=== PATIENT | male | born 1955 | race Caucasian/White ===

== ENCOUNTER 2020-09-18 16:20 | Emergency (ER) | payer OTHER ==
[~2020-09-18] VITALS: Ht 167.6 cm; Wt 74.8 kg
[~2020-09-18 16:20] MED LIST: ASPI325EC PO; ASPI81CH PO; CHANTIX1 EACH PO; CILO100; CLOP75 PO; FLUT1DIS5 INH; Flonase 0.05% N16 GM; IBUP800; OXYC5; PROAIR DIGIHAL90 MCG INH; PSEU120ER PO; SPIRIVA RESPIMAT4 GM INH; Zithromax250 MG PO
[2020-09-18 17:12] LABS: BASOPHILS ABSOLUTE AUTO 0.06 K/mm3 (0.00-0.23); BASOPHILS PERCENT AUTO 1 % (0-2); EOSINOPHILS PERCENT AUTO 3 % (0-6); Hematocrit 52.7 % (37.0-53.0); IMMATURE GRAN ABSOLUTE AUTO 0.02 K/mm3 (0.00-0.10); IMMATURE GRAN PERCENT AUTO 0 % (0-1); LYMPHOCYTES ABSOLUTE AUTO 2.67 K/mm3 (0.84-5.20); LYMPHOCYTES PERCENT AUTO 40 % (21-46); MONOCYTES ABSOLUTE AUTO 0.45 K/mm3 (0.16-1.47); MONOCYTES PERCENT AUTO 7 % (4-13); Mean Corpuscular HGB 30.3 pg (26.0-34.0); Mean Corpuscular HGB Conc 34.2 g/dL (31.5-36.5); Mean Corpuscular Volume 89 fL (80-100); Mean Platelet Volume 9.2 fL (9.1-12.4); NEUTROPHILS ABSOLUTE AUTO 3.36 K/mm3 (1.96-9.15); NEUTROPHILS PERCENT AUTO 50 % (41-73); Platelet Count 159 K/mm3 (150-400); RDW Coefficient Variation 12.6 % (11.7-14.2); Red Blood Cell Count 5.95 M/mm3 (4.30-5.90); White Blood Cell Count 6.76 K/mm3 (4.00-11.30)
[2020-09-18 17:16] LABS: Alanine Aminotransfer (ALT/SGP 20 U/L (12-78); Albumin, Blood 3.9 g/dL (3.4-5.0); Alk Phos 90 U/L (50-136); Anion Gap 4 mmol/L (6-16); Aspartate Aminotrans (AST/SGOT 12 U/L (12-37); Bilirubin, Total 0.6 mg/dL (0.1-1.0); Blood Urea Nitrogen 22 mg/dL (8-24); Bun/Creatinine Ratio 22.4 (12.0-20.0); CO2, Blood 26 mmol/L (21-32); Calcium, Blood 9.2 mg/dL (8.5-10.1); Chloride, Blood 108 mmol/L (98-108); Creatinine, Blood 0.98 mg/dL (0.60-1.20); Globulin, Blood 3.8 g/dL (2.2-4.0); Glomerular Filtration Rate >60 (60-); Glucose, Blood 111 mg/dL (70-99); Sodium, Blood 138 mmol/L (136-145); Total Protein, Blood 7.7 g/dL (6.4-8.2)
[2020-09-18 17:19] LABS: International Normalized Ratio 0.95; Prothrombin Time Results 10.3 Sec (9.7-11.5)
== END 2020-09-18 21:01 | disposition home or self-care (01) ==
LOC: ER 16:20
PROVIDERS: Physician Assistant
DX: R47.1 Dysarthria and anarthria (principal); R41.0 Disorientation, unspecified; J44.9 Chronic obstructive pulmonary disease, unspecified; F17.210 Nicotine dependence, cigarettes, uncomplicated; F17.290 Nicotine dependence, other tobacco product, uncomplicated; I10 Essential (primary) hypertension; Z85.47 Personal history of malignant neoplasm of testis; Z79.02 Long term (current) use of antithrombotics/antiplatelets; Z79.899 Other long term (current) drug therapy; Z79.82 Long term (current) use of aspirin; Z91.018 Allergy to other foods; Z88.0 Allergy status to penicillin
CPT/HCPCS: 36415; 70450; 80053; 85025; 85610; 85730; 93005; 93010; 99285-25

== ENCOUNTER 2021-01-08 21:09 | Observation (INO) | payer OTHER ==
[~2021-01-08] VITALS: Ht 182.9 cm; Wt 77.8 kg
[~2021-01-08 21:09] MED LIST changes: -ASPI81CH PO; +Aspir 8181 MG PO
[2021-01-08 21:24] LABS: BASOPHILS ABSOLUTE AUTO 0.06 K/mm3 (0.00-0.23); BASOPHILS PERCENT AUTO 1 % (0-2); EOSINOPHILS ABSOLUTE AUTO 0.37 K/mm3 (0.00-0.68); EOSINOPHILS PERCENT AUTO 4 % (0-6); Hematocrit 50.1 % (37.0-53.0); Hemoglobin 17.2 g/dL (13.5-17.5); IMMATURE GRAN ABSOLUTE AUTO 0.04 K/mm3 (0.00-0.10); IMMATURE GRAN PERCENT AUTO 1 % (0-1); LYMPHOCYTES PERCENT AUTO 34 % (21-46); MONOCYTES ABSOLUTE AUTO 0.61 K/mm3 (0.16-1.47); MONOCYTES PERCENT AUTO 7 % (4-13); Mean Corpuscular HGB 30.5 pg (26.0-34.0); Mean Corpuscular HGB Conc 34.3 g/dL (31.5-36.5); Mean Corpuscular Volume 89 fL (80-100); Mean Platelet Volume 9.3 fL (9.1-12.4); NEUTROPHILS ABSOLUTE AUTO 4.66 K/mm3 (1.96-9.15); NEUTROPHILS PERCENT AUTO 53 % (41-73); Platelet Count 153 K/mm3 (150-400); RDW Coefficient Variation 12.9 % (11.7-14.2); RDW Standard Deviation 42.5 fL (35.1-46.3); Red Blood Cell Count 5.64 M/mm3 (4.30-5.90); White Blood Cell Count 8.74 K/mm3 (4.00-11.30)
[2021-01-08 21:52] LABS: U Amphetamine Screen Not Detected; U Methamphetamine Screen Not Detected
[2021-01-08 21:53] LABS: U Barbituate Screen Not Detected; U Benzodiazapine Screen Not Detected; U Buprenorphine Screen Not Detected; U Cannabinoids Screen DETECTED; U Cocaine Screen Not Detected; U Methadone Screen Not Detected; U Opiates Screen Not Detected; U Oxycodone Screen Not Detected; U Phencyclidine Screen Not Detected; U Propoxyphene Screen Not Detected
[2021-01-08 21:56] LABS: Alanine Aminotransfer (ALT/SGP 27 U/L (12-78); Albumin, Blood 3.5 g/dL (3.4-5.0); Albumin/Globulin Ratio 0.9 (0.8-1.8); Alk Phos 110 U/L (50-136); Anion Gap 7 mmol/L (6-16); Aspartate Aminotrans (AST/SGOT 18 U/L (12-37); Bilirubin, Total 0.5 mg/dL (0.1-1.0); Blood Urea Nitrogen 15 mg/dL (8-24); Bun/Creatinine Ratio 16.6 (12.0-20.0); CO2, Blood 23 mmol/L (21-32); Chloride, Blood 108 mmol/L (98-108); Creatinine, Blood 0.91 mg/dL (0.60-1.20); Ethanol (Alcohol), Blood, Med <3 mg/dL; Glomerular Filtration Rate >60 (60-); Glucose, Blood 133 mg/dL (70-99); Potassium, Blood 3.6 mmol/L (3.5-5.5); Sodium, Blood 138 mmol/L (136-145); Total Protein, Blood 7.5 g/dL (6.4-8.2)
[2021-01-08] MEDS ORDERED: AMLO10 PO (22:47)
[2021-01-08] MEDS ORDERED: FLUTICASONE-SA1 EAC9 IH (22:47)
[2021-01-08] MEDS ORDERED: LIPITOR80 MG PO (22:47)
[2021-01-08] MEDS ORDERED: Ventolin/Prove6.7 GM INH (22:48)
[2021-01-08] MEDS ORDERED: SPIRIVA RESPIMAT4 G3 INH (22:48)
[2021-01-08] MEDS ORDERED: NORTRIPTYLINE H PO (22:48)
[2021-01-08 23:04] LABS: International Normalized Ratio 0.98; Prothrombin Time Results 10.3 Sec (9.7-11.5)
[2021-01-09] MEDS ORDERED: XARELTO2.5 M1 PO (00:26)
[2021-01-09] MEDS ORDERED: FLUT1DIS5 INH (00:29)
--- NOTE | 2021-01-09 06:27 | NUR ---
AT ABOUT 0100, PT ARRIVED FROM ER VIA STRETCHER ACCOMPANIED BY 2 ER ATTENDANTS. HE WAS TRANSFERRED TO THE HOSPITAL BED USING SLIDE SHEET AND 4 STAFF MEMBERS TOTAL. HE IS AAOX3 WITH PERIODS OF FORGETFULNESS AND CONFUSION. PT IS EASILY AGITATED AND FRUSTRATED. PT PLACED ON CARDIAC TELEMETRY MONITORING ORDERED, TELE BOX # [id number]. PT IS SINUS RHYTHM, HR IN THE 80s PER CONNOR DIRECTOR OF ANALYTICS. PT IS FREQUENTLY PULLING OFF THE TELE LEADS. PT IS MALODOROUS, REFUSING A BED BATH OR TO CLEAN UP. PT REFUSING SLIP RESISTANT YELLOW SOCKS. PT ORIENTED TO THE ROOM AND CALL LOGHT USES/FUNCTIONS. BED IS IN LOW POSITION WITH THE CALL LIGHT WITHIN EASY REACH. BED ALARM ACTIVATED. DR PORTER WAS PAGED REGARDING OT C/O PAIN, MUSCLE CRAMPS AND TINGLING TO THE LEFT SIDE OF HIS BODY. DR. PORTER PLACED ORDERS FOR FLEXERIL. PT UPDATED ON THE PLAN OF CARE.
[2021-01-09 06:46] LABS: CHOL/HDL RATIO 4.7; Cholesterol 151 mg/dL (50-200); HDL Cholesterol 32 mg/dL (>39); LDL/HDL RATIO 2.9; Low Density Lipoprotein Chol 93 mg/dL (0-110); Triglycerides 130 mg/dL (30-160); Very Low Density Lipoprot Chol 26 mg/dL (6-32)
--- NOTE | 2021-01-09 19:09 | NUR ---
Alert and oriented x3 , able to verablize needs. speech is slurred . Significant left sided weakness noted. Good strength on right upper and lower extremities. c/o left leg pain , dilaudid 2 mg was given and it was effectove. BP meds were ordered. Continue on Tele monitor , with sinus rthymn 80-90S. Bed alarm on and call light within. Continue to monitor.
--- NOTE | 2021-01-10 05:56 | NUR ---
PT RESTED WELL OVERNIGHT. CONTINUES TO HAVE LEFT SIDED WEAKNESS. C/O LEFT SIDED HIP AND LOWER EXTREMITY PAIN, MEDICATED WITH PRN DILAUDID WITH GOOD EFFECT. REMAINS ON CARDIAC TELEMETRY, SINUS RHYTHM, HR 60s-70s PER SABINO-MARINE ELECTRICIAN APPRENTICE. PT REMAINS WITH OCCASIONAL PERIODS OF FORGETFULNESS/CONFUSION. BED REMAINS IN LOW POSITION WITH THE CALL LIGHT WITHIN EASY REACH. WILL CONTINUE TO MONITOR.
[2021-01-10] MEDS ORDERED: Nicoderm Cq1 EAC1 TOP (16:02)
[2021-01-10] MEDS ORDERED: CLOP75 PO (16:02)
[2021-01-10] MEDS ORDERED: HYDCHL25 PO (16:02)
[2021-01-10] MEDS ORDERED: POTA10T PO (16:03)
--- NOTE | 2021-01-10 18:20 | NUR ---
DISCHARGE NOTE PATIENT WAS DISCHARGED AT 173O WITH [facility] VIA WHEELCHAIR. PATIENT UNDERSTOOD DISCHARGE INSTRUCTIONS ALONG WITH NEW MEDICATIONS PRESCRIBED. VS
== END 2021-01-10 17:42 | disposition home health service (06) ==
LOC: ER 21:09 → MEDS 21:10
PROVIDERS: Emergency Medicine; ADMIT Internal Medicine
DX: I63.81 Other cerebral infarction due to occlusion or stenosis of small artery (principal); G81.94 Hemiplegia, unspecified affecting left nondominant side; I10 Essential (primary) hypertension; F17.210 Nicotine dependence, cigarettes, uncomplicated; J44.9 Chronic obstructive pulmonary disease, unspecified; I73.9 Peripheral vascular disease, unspecified; E78.5 Hyperlipidemia, unspecified; Z88.0 Allergy status to penicillin; Z91.018 Allergy to other foods; H43.819 Vitreous degeneration, unspecified eye; Z85.47 Personal history of malignant neoplasm of testis
CPT/HCPCS: 36415; 70450; 70496; 70498; 80053; 80061; 82947; 85025; 85610; 92610; 93005; 93010; 94640; 94760; 97110; 97112; 97162; 97166; 97530; 97535; 99285-25; A9270; G0480; Q9967

== ENCOUNTER 2021-01-11 14:05 | Observation (INO) | payer OTHER ==
[~2021-01-11] VITALS: Ht 170.2 cm; Wt 76.7 kg
[~2021-01-11 14:05] MED LIST changes: +AMLO10 PO; +FLUTICASONE-SA1 EAC9 IH; +HYDCHL25 PO; +LIPITOR80 MG PO; +NORTRIPTYLINE H PO; +Nicoderm Cq1 EAC1 TOP; +POTA10T PO; +SPIRIVA RESPIMAT4 G3 INH; +Ventolin/Prove6.7 GM INH; +XARELTO2.5 M1 PO
[2021-01-11 15:42] LABS: Source, Urine Clean Catch
[2021-01-11 15:47] LABS: Appearance, Urine Clear (Clear); Bilirubin, Urine Neg (Neg); Blood, Urine 3+ (Neg); Color, Urine Yellow (P-Yellow); Glucose Qualitative, Urine 1+ (Neg); Ketones, Urine Neg (Neg); Leukocyte Esterase, Urine 1+ (Neg); Nitrite, Urine Pos (Neg); Protein, Urine 2+ (Neg); Specific Gravity, Urine 1.025 (1.003-1.022); Urobilinogen, Urine 1+ (Normal)
[2021-01-11 16:01] LABS: Bacteria Few /hpf; Squamous Epithelial Cells Few /hpf (Few)
[2021-01-11 16:02] LABS: Amorphous Mod (0-Heavy)
[2021-01-11 16:19] LABS: BASOPHILS ABSOLUTE AUTO 0.05 K/mm3 (0.00-0.23); BASOPHILS PERCENT AUTO 1 % (0-2); EOSINOPHILS ABSOLUTE AUTO 0.25 K/mm3 (0.00-0.68); EOSINOPHILS PERCENT AUTO 3 % (0-6); Hematocrit 53.6 % (37.0-53.0); Hemoglobin 18.9 g/dL (13.5-17.5); IMMATURE GRAN ABSOLUTE AUTO 0.02 K/mm3 (0.00-0.10); IMMATURE GRAN PERCENT AUTO 0 % (0-1); LYMPHOCYTES PERCENT AUTO 26 % (21-46); MONOCYTES ABSOLUTE AUTO 0.58 K/mm3 (0.16-1.47); MONOCYTES PERCENT AUTO 8 % (4-13); Mean Corpuscular HGB 30.8 pg (26.0-34.0); Mean Corpuscular HGB Conc 35.3 g/dL (31.5-36.5); Mean Corpuscular Volume 87 fL (80-100); Mean Platelet Volume 9.6 fL (9.1-12.4); NEUTROPHILS ABSOLUTE AUTO 4.86 K/mm3 (1.96-9.15); NEUTROPHILS PERCENT AUTO 63 % (41-73); Platelet Count 222 K/mm3 (150-400); RDW Coefficient Variation 12.8 % (11.7-14.2); Red Blood Cell Count 6.13 M/mm3 (4.30-5.90); White Blood Cell Count 7.76 K/mm3 (4.00-11.30)
[2021-01-11 16:43] LABS: Alanine Aminotransfer (ALT/SGP 27 U/L (12-78); Albumin, Blood 3.5 g/dL (3.4-5.0); Albumin/Globulin Ratio 0.8 (0.8-1.8); Alk Phos 117 U/L (50-136); Anion Gap 6 mmol/L (6-16); Aspartate Aminotrans (AST/SGOT 20 U/L (12-37); Bilirubin, Total 0.5 mg/dL (0.1-1.0); Blood Urea Nitrogen 23 mg/dL (8-24); CO2, Blood 27 mmol/L (21-32); Calcium, Blood 9.3 mg/dL (8.5-10.1); Chloride, Blood 103 mmol/L (98-108); Globulin, Blood 4.4 g/dL (2.2-4.0); Glomerular Filtration Rate >60 (60-); Glucose, Blood 132 mg/dL (70-99); Potassium, Blood 3.7 mmol/L (3.5-5.5); Sodium, Blood 136 mmol/L (136-145); Total Protein, Blood 7.9 g/dL (6.4-8.2)
--- NOTE | 2021-01-11 21:49 | NUR ---
ADMIT NOTE PT IS 65 Y/O MALE DIAGNOSED WITH CVA AND UTI. PT HAD STROKE ON DEC 1 AND WAS DISHCARGED FROM [facility] DEC 3. PT HAS L SIDED DEFICITS, UNABLE TO WALK AND HAS DIFFICULTY STANDING WITHOUT ASSISTANCE. PT STS NEEDS HELP USING THE URINAL WELL. PT STS THAT HE FEELS CONFUSED AND TIRED. PT SEEMS FORGETFUL OF SMALL THINGS, SUCH IF WEARING UNDERWEAR OR WHICH PANTS HE'S WEARING. MOST MEMORY SEEMS IN TACT. NO BED SORES OR ULCERS NOTED. ON TELE, SINUS WITH INVERTED T WAVES AT 86. NO OXYGEN. 20 G IV IN L AC. HX TESTICULAR CA, HIGH BP, PAD, AND COPD.
--- NOTE | 2021-01-12 04:41 | NUR ---
SHIFT SUMMARY NO ACUTE CHANGES SINCE ADMISSION. VSS. PT HAD BM LAST EVENING. PT STS UNABLE TO USE URINAL ON HIS OWN AND REQUIRES ASSISTANCE. PT HAS BRIEF MOMENTS OF CONFUSION, FOR EXAMPLE HE FORGOT WHY HE PRESSED THE CALL LIGHT. IN SINUS RHYTHM WITH INVERTED T WAVES ON TELE. PT COULD NOT SLEEP, GOT DR. PORTER TO ORDER 5 MG MELATONIN AND PT SLEPT SOME OF THE NIGHT. PT IN NO DISTRESS. CALL LIGHT WITHIN REACH. WILL CONTINUE TO MONITOR.
[2021-01-12 05:17] LABS: BASOPHILS ABSOLUTE AUTO 0.04 K/mm3 (0.00-0.23); BASOPHILS PERCENT AUTO 1 % (0-2); EOSINOPHILS ABSOLUTE AUTO 0.34 K/mm3 (0.00-0.68); EOSINOPHILS PERCENT AUTO 5 % (0-6); Hematocrit 49.5 % (37.0-53.0); Hemoglobin 17.2 g/dL (13.5-17.5); IMMATURE GRAN ABSOLUTE AUTO 0.02 K/mm3 (0.00-0.10); IMMATURE GRAN PERCENT AUTO 0 % (0-1); LYMPHOCYTES ABSOLUTE AUTO 2.79 K/mm3 (0.84-5.20); LYMPHOCYTES PERCENT AUTO 37 % (21-46); MONOCYTES ABSOLUTE AUTO 0.62 K/mm3 (0.16-1.47); MONOCYTES PERCENT AUTO 8 % (4-13); Mean Corpuscular HGB Conc 34.7 g/dL (31.5-36.5); Mean Corpuscular Volume 89 fL (80-100); Mean Platelet Volume 9.7 fL (9.1-12.4); NEUTROPHILS ABSOLUTE AUTO 3.66 K/mm3 (1.96-9.15); NEUTROPHILS PERCENT AUTO 49 % (41-73); Platelet Count 200 K/mm3 (150-400); RDW Coefficient Variation 12.9 % (11.7-14.2); RDW Standard Deviation 42.5 fL (35.1-46.3); Red Blood Cell Count 5.55 M/mm3 (4.30-5.90); White Blood Cell Count 7.47 K/mm3 (4.00-11.30)
[2021-01-12 05:50] LABS: Anion Gap 8 mmol/L (6-16); Blood Urea Nitrogen 21 mg/dL (8-24); Bun/Creatinine Ratio 22.8 (12.0-20.0); CO2, Blood 26 mmol/L (21-32); Calcium, Blood 8.8 mg/dL (8.5-10.1); Chloride, Blood 105 mmol/L (98-108); Creatinine, Blood 0.92 mg/dL (0.60-1.20); Glomerular Filtration Rate >60 (60-); Glucose, Blood 104 mg/dL (70-99); Potassium, Blood 3.7 mmol/L (3.5-5.5); Sodium, Blood 139 mmol/L (136-145)
--- NOTE | 2021-01-12 16:19 | NUR ---
PT IS A/OX4, PLEASANT AND COOPERATIVE THE PT IS UP WITH ASSIST TO THE CHAIR, PT HAS LEFT SIDE WEAKNESS FROM PRIOR CVA.PT APPEARS TO BE BREATHING EASILY ON RA AT THIS TIME. THE PTREPORTED MILD LEFT LEG PAIN THIS AM, HOWEVER, DECLINED TO TAKE TYLENOL FOR THE PAIN. THE PT HAS A GOOD APPETITE IS ABLE TO REPOSITION HIMSELF IN THE BED AND APPEARS TO BE COMFORTABLE AT THIS TIME. CALL LIGHT IN REACH. WILL CONTINUE TO MONITOR AND ASSESS FOR CHANGES.
--- NOTE | 2021-01-13 03:25 | NUR ---
SHIFT SUMMARY NO ACUTE CHANGES DURING THIS SHIFT. PT TRIES USING THE URINAL ON HIS OWN. A&O X4. L SIDED WEAKNESS. PT GIVEN SNACK AT 0300 DUE TO HUNGER. PT USES CALL LIGHT APPROPRIATELY AND IT IS WITHIN HIS REACH. TELE IS SINUS IN THE 70'S . WILL CONTINUE TO MONITOR.
[2021-01-13] MEDS ORDERED: Acetaminophen325 M1 PO (12:58)
[2021-01-13] MEDS ORDERED: MELATONIN5 M1 PO (12:59)
[2021-01-13 13:02] LABS: Influenza A, PCR NEGATIVE (NEGATIVE); Influenza B, PCR NEGATIVE (NEGATIVE); Resp Syncytial Virus, PCR NEGATIVE (NEGATIVE); SARS-Cov-2 (COVID-19) PCR, MMC NEGATIVE (NEGATIVE)
--- NOTE | 2021-01-13 14:09 | NUR ---
REPORT CALLED TO RN AT [facility] ON 01/13/21 AT 3715
--- NOTE | 2021-01-13 15:00 | NUR ---
PATIENT DISCHARGED WITH [facility] AT 1455.
== END 2021-01-13 14:55 ==
LOC: ER 14:05 → ERHOLD 14:06 → MEDS 21:04 → ENPENDDIS 01-13 12:22 → MEDS 01-13 14:55
PROVIDERS: Internal Medicine; Physician Assistant; ADMIT Family Medicine
DX: I63.81 Other cerebral infarction due to occlusion or stenosis of small artery (principal); R53.1 Weakness; J44.9 Chronic obstructive pulmonary disease, unspecified; E11.51 Type 2 diabetes mellitus with diabetic peripheral angiopathy without gangrene; I65.21 Occlusion and stenosis of right carotid artery; I10 Essential (primary) hypertension; Z74.09 Other reduced mobility; J96.01 Acute respiratory failure with hypoxia; F17.210 Nicotine dependence, cigarettes, uncomplicated; D58.2 Other hemoglobinopathies; E78.5 Hyperlipidemia, unspecified; Z85.47 Personal history of malignant neoplasm of testis; Z88.0 Allergy status to penicillin; Z91.018 Allergy to other foods; Z91.81 History of falling
CPT/HCPCS: 0241U; 36415; 80048; 80053; 81001; 83036; 83605; 85025; 87086; 92610; 93005; 93010; 94640; 94664; 94760; 96365; 96372; 97110; 97116; 97162; 97530; 99285-25; A9270; G0378; J0696; J1650; J7030

== ENCOUNTER 2021-02-18 11:49 | Emergency (ER) | payer OTHER ==
[~2021-02-18] VITALS: Ht 167.6 cm; Wt 68.0 kg
[~2021-02-18 11:49] MED LIST changes: +Acetaminophen325 M1 PO; +MELATONIN5 M1 PO
== END 2021-02-18 14:05 | disposition home or self-care (01) ==
LOC: ER 11:49
DX: S49.92XA Unspecified injury of left shoulder and upper arm, initial encounter (principal); J44.9 Chronic obstructive pulmonary disease, unspecified; I10 Essential (primary) hypertension; E78.5 Hyperlipidemia, unspecified; F17.210 Nicotine dependence, cigarettes, uncomplicated; X58.XXXA Exposure to other specified factors, initial encounter
CPT/HCPCS: 73030; 93005; 93010; 99284-25

== ENCOUNTER → 2021-06-25 | Outpatient (CLI) | payer OTHER | END | disposition home or self-care (01) | LOC: LAB SHORT 12:40 | DX: R82.90 Unspecified abnormal findings in urine (principal) | CPT/HCPCS: 87086 ==

== ENCOUNTER → 2021-07-28 | Outpatient (CLI) | payer OTHER | END | disposition home or self-care (01) | LOC: LAB 11:40 → LAB SHORT 11:40 | DX: R82.90 Unspecified abnormal findings in urine (principal) | CPT/HCPCS: 87086 ==

== ENCOUNTER 2022-12-07 14:32 | Emergency (ER) | payer OTHER ==
[~2022-12-07] VITALS: Ht 167.6 cm; Wt 81.7 kg
[2022-12-07 16:01] LABS: BASOPHILS ABSOLUTE AUTO 0.06 K/mm3 (0.00-0.23); BASOPHILS PERCENT AUTO 1 % (0-2); EOSINOPHILS ABSOLUTE AUTO 0.25 K/mm3 (0.00-0.68); EOSINOPHILS PERCENT AUTO 3 % (0-6); Hematocrit 52.7 % (37.0-53.0); Hemoglobin 18.1 g/dL (13.5-17.5); IMMATURE GRAN ABSOLUTE AUTO 0.03 K/mm3 (0.00-0.10); IMMATURE GRAN PERCENT AUTO 0 % (0-1); LYMPHOCYTES ABSOLUTE AUTO 2.66 K/mm3 (0.84-5.20); LYMPHOCYTES PERCENT AUTO 28 % (21-46); MONOCYTES ABSOLUTE AUTO 0.61 K/mm3 (0.16-1.47); MONOCYTES PERCENT AUTO 7 % (4-13); Mean Corpuscular HGB 32.3 pg (26.0-34.0); Mean Corpuscular HGB Conc 34.3 g/dL (31.5-36.5); Mean Corpuscular Volume 94 fL (80-100); Mean Platelet Volume 9.2 fL (9.1-12.4); NEUTROPHILS ABSOLUTE AUTO 5.78 K/mm3 (1.96-9.15); NEUTROPHILS PERCENT AUTO 62 % (41-73); Platelet Count 211 K/mm3 (150-400); RDW Coefficient Variation 12.9 % (11.7-14.2); RDW Standard Deviation 44.8 fL (35.1-46.3); White Blood Cell Count 9.39 K/mm3 (4.00-11.30)
[2022-12-07 16:44] LABS: Source, Urine Clean Catch
[2022-12-07 16:57] LABS: Bilirubin, Urine Neg (Neg); Blood, Urine 3+ (Neg); Color, Urine Yellow (P-Yellow); Glucose Qualitative, Urine Neg (Neg); Ketones, Urine Neg (Neg); Leukocyte Esterase, Urine Neg (Neg); Nitrite, Urine Neg (Neg); Protein, Urine Neg (Neg); Urobilinogen, Urine NORM (Normal); pH, Urine 6.5 (5.0-8.0)
[2022-12-07 17:10] VITALS: BP 117/61
[2022-12-07 17:27] LABS: Albumin, Blood 3.7 g/dL (3.4-5.0); Albumin/Globulin Ratio 0.9 (0.8-1.8); Bilirubin, Total 0.5 mg/dL (0.1-1.0); Bun/Creatinine Ratio 22.3 (12.0-20.0); Calcium, Blood 8.6 mg/dL (8.5-10.1); Creatinine, Blood 0.72 mg/dL (0.60-1.20); Potassium, Blood 4.2 mmol/L (3.5-5.5); Total Protein, Blood 7.7 g/dL (6.4-8.2)
[2022-12-07 17:29] LABS: Appearance, Urine Hazy (Clear)
[2022-12-07 17:31] LABS: Bacteria Mod /hpf; Squamous Epithelial Cells Rare /hpf (Few); Transitional Epithelial Cells Rare /hpf (0-Rare); White Blood Cells, Urine 0-2 /hpf (0-5)
== END 2022-12-07 19:08 | disposition home or self-care (01) ==
LOC: ER 14:32
PROVIDERS: Physician Assistant
DX: R31.9 Hematuria, unspecified (principal); J44.9 Chronic obstructive pulmonary disease, unspecified; I10 Essential (primary) hypertension; F17.210 Nicotine dependence, cigarettes, uncomplicated; Z88.0 Allergy status to penicillin; Z91.018 Allergy to other foods; Z79.899 Other long term (current) drug therapy; Z79.82 Long term (current) use of aspirin; Z85.47 Personal history of malignant neoplasm of testis
CPT/HCPCS: 74177; 80053; 81001; 83690; 85025; 87086; 99284-25; Q9967

== ENCOUNTER → 2022-12-09 | Outpatient (CLI) | payer OTHER ==
[2022-12-09 19:49] LABS: Microalb/Creat Ratio UR, Rand 14.684 mg/g (0.000-30.000); Microalbumin, Random Urine 34.8 mg/L (0.000-20.000)
== END ==
LOC: LAB SHORT 14:15 → LAB 14:15
PROVIDERS: Family Medicine
DX: R31.9 Hematuria, unspecified (principal)
CPT/HCPCS: 82043; 82570

== ENCOUNTER 2023-11-11 12:05 | Inpatient (IN) | payer OTHER ==
[~2023-11-11] VITALS: Ht 172.7 cm; Wt 72.6 kg
[~2023-11-11 12:05] MED LIST changes: +ALBU90OI INH; -Ventolin/Prove6.7 GM INH
[2023-11-11 15:31] LABS: BASOPHILS ABSOLUTE AUTO 0.02 K/mm3 (0.00-0.23); BASOPHILS PERCENT AUTO 0 % (0-2); EOSINOPHILS ABSOLUTE AUTO 0.03 K/mm3 (0.00-0.68); EOSINOPHILS PERCENT AUTO 0 % (0-6); Hematocrit 44.9 % (37.0-53.0); Hemoglobin 15.1 g/dL (13.5-17.5); IMMATURE GRAN ABSOLUTE AUTO 0.07 K/mm3 (0.00-0.10); IMMATURE GRAN PERCENT AUTO 1 % (0-1); LYMPHOCYTES ABSOLUTE AUTO 1.22 K/mm3 (0.84-5.20); LYMPHOCYTES PERCENT AUTO 8 % (21-46); MONOCYTES ABSOLUTE AUTO 0.93 K/mm3 (0.16-1.47); MONOCYTES PERCENT AUTO 6 % (4-13); Mean Corpuscular HGB 27.4 pg (26.0-34.0); Mean Corpuscular HGB Conc 33.6 g/dL (31.5-36.5); Mean Corpuscular Volume 81 fL (80-100); Mean Platelet Volume 9.4 fL (9.1-12.4); NEUTROPHILS ABSOLUTE AUTO 12.98 K/mm3 (1.96-9.15); NEUTROPHILS PERCENT AUTO 85 % (41-73); Platelet Count 162 K/mm3 (150-400); RDW Coefficient Variation 18.5 % (11.7-14.2); RDW Standard Deviation 53.9 fL (35.1-46.3); Red Blood Cell Count 5.52 M/mm3 (4.30-5.90); White Blood Cell Count 15.25 K/mm3 (4.00-11.30)
[2023-11-11] MEDS ORDERED: CeFAZolin Sodium 2,000 MG in NS 100 ML IV ONE (15:35)
[2023-11-11] MEDS ORDERED: NS 1,000 ML IV SCH ×2 (15:35→17:20)
[2023-11-11 16:00] LABS: Alanine Aminotransfer (ALT/SGP 19 U/L (12-78); Albumin, Blood 3.2 g/dL (3.4-5.0); Albumin/Globulin Ratio 0.7 (0.8-1.8); Alk Phos 90 U/L (50-136); Anion Gap 15 mmol/L (3-11); Aspartate Aminotrans (AST/SGOT 12 U/L (12-37); Bilirubin, Total 1.6 mg/dL (0.1-1.0); Blood Urea Nitrogen 18 mg/dL (8-24); Bun/Creatinine Ratio 17.1 (12.0-20.0); C-REACTIVE PROTEIN, EXT RANGE >19.000 mg/dL (0.000-0.300); CO2, Blood 24 mmol/L (21-32); Calcium, Blood 9.2 mg/dL (8.5-10.1); Chloride, Blood 98 mmol/L (98-108); Creatinine, Blood 1.05 mg/dL (0.60-1.20); Globulin, Blood 4.9 g/dL (2.2-4.0); Glomerular Filtration Rate 78 (60-); Glucose, Blood 112 mg/dL (70-99); Potassium, Blood 3.8 mmol/L (3.5-5.5); Sodium, Blood 133 mmol/L (136-145); Total Protein, Blood 8.1 g/dL (6.4-8.2)
[2023-11-11] MEDS ORDERED: Lactated Ringer's 1,000 ML IV SCH ×2 (16:30→18:45)
[2023-11-11] MEDS ORDERED: Vancomycin HCL 1,750 MG in NS 500 ML IV ONE (16:45)
[2023-11-11] MEDS ORDERED: FentaNYL Citrate 50 MCG/ML 2 ML Injection IV ONE (17:20)
[2023-11-11] MEDS ORDERED: Clindamycin 600mg in D5W 50 ML IV ONE (17:45)
[2023-11-11] MEDS ORDERED: Acetaminophen 500 MG Tab PO ONE (18:05)
[2023-11-11] MEDS ORDERED: FLU VACC TS2024-25(6MOS UP)/PF 45 MCG/0.5 ML SYRINGE IM SCH (18:50)
[2023-11-11] MEDS ORDERED: Albuterol 2.5 MG/3 ML VIAL INH PRN (18:50)
[2023-11-11] MEDS ORDERED: Tiotropium Bromide 2.5 MCG/ACT MIST INHAL (10 ACT/4 GM) INH SCH (18:50)
[2023-11-11] MEDS ORDERED: Acetaminophen 325 MG TABLET PO PRN (18:50)
[2023-11-11 18:54] LABS: Source, Urine Clean Catch
[2023-11-11] MEDS ORDERED: Ondansetron HCl 2 MG / ML 2ML Vial IV PRN (18:55)
[2023-11-11 18:59] LABS: Appearance, Urine Clear (Clear); Bilirubin, Urine Neg (Neg); Blood, Urine 2+ (Neg); Color, Urine Yellow (P-Yellow); Glucose Qualitative, Urine Neg (Neg); Ketones, Urine Neg (Neg); Leukocyte Esterase, Urine Neg (Neg); Nitrite, Urine Neg (Neg); Protein, Urine 3+ (Neg); Urobilinogen, Urine 2+ (Normal)
[2023-11-11] MEDS ORDERED: Mometasone/Formoterol MDI 200/5 mcg 13 GM INH SCH (19:00)
[2023-11-11 19:46] LABS: Squamous Epithelial Cells Few /hpf (Few); White Blood Cells, Urine 0-2 /hpf (0-5)
[2023-11-11 19:47] LABS: Bacteria Rare /hpf
[2023-11-11] MEDS ORDERED: Lactobacil 2-S.Thermo-Bifido 1 1 Cap PO SCH (21:00)
[2023-11-11 22:46] VITALS: BP 110/58
[2023-11-12] VITALS (7 sets, daily range): BP systolic 99–128; BP diastolic 56–77
[2023-11-12] MEDS ORDERED: CeFAZolin Sodium 2,000 MG in NS 100 ML IV SCH
[2023-11-12 03:37] LABS: BASOPHILS ABSOLUTE AUTO 0.02 K/mm3 (0.00-0.23); BASOPHILS PERCENT AUTO 0 % (0-2); EOSINOPHILS ABSOLUTE AUTO 0.04 K/mm3 (0.00-0.68); EOSINOPHILS PERCENT AUTO 0 % (0-6); Hematocrit 39.9 % (37.0-53.0); Hemoglobin 13.3 g/dL (13.5-17.5); IMMATURE GRAN ABSOLUTE AUTO 0.03 K/mm3 (0.00-0.10); IMMATURE GRAN PERCENT AUTO 0 % (0-1); LYMPHOCYTES ABSOLUTE AUTO 1.18 K/mm3 (0.84-5.20); LYMPHOCYTES PERCENT AUTO 12 % (21-46); MONOCYTES ABSOLUTE AUTO 1.03 K/mm3 (0.16-1.47); MONOCYTES PERCENT AUTO 10 % (4-13); Mean Corpuscular HGB 27.4 pg (26.0-34.0); Mean Corpuscular HGB Conc 33.3 g/dL (31.5-36.5); Mean Corpuscular Volume 82 fL (80-100); Mean Platelet Volume 9.5 fL (9.1-12.4); NEUTROPHILS ABSOLUTE AUTO 7.58 K/mm3 (1.96-9.15); NEUTROPHILS PERCENT AUTO 77 % (41-73); Platelet Count 122 K/mm3 (150-400); RDW Coefficient Variation 18.3 % (11.7-14.2); RDW Standard Deviation 55.7 fL (35.1-46.3); Red Blood Cell Count 4.86 M/mm3 (4.30-5.90); White Blood Cell Count 9.88 K/mm3 (4.00-11.30)
[2023-11-12 03:58] LABS: Albumin, Blood 2.4 g/dL (3.4-5.0); Albumin/Globulin Ratio 0.6 (0.8-1.8); Bilirubin, Total 0.7 mg/dL (0.1-1.0); Calcium, Blood 7.9 mg/dL (8.5-10.1); Creatinine, Blood 0.93 mg/dL (0.60-1.20); Globulin, Blood 4.1 g/dL (2.2-4.0); Magnesium, Blood 1.9 mg/dL (1.6-2.4); Potassium, Blood 3.6 mmol/L (3.5-5.5); Total Protein, Blood 6.5 g/dL (6.4-8.2)
[2023-11-12] MEDS ORDERED: OxyCODONE HCL 5 MG TAB PO PRN (05:38)
--- NOTE | 2023-11-12 06:08 | NUR ---
SHIFT SUMMARY PT TRANSFERRED FROM ED AT APPROX 2030. PT A&O4 COOPERATIVE IN ADMISSION BUT SEEMS TO BE A POOR HISTORIAN; UNABLE TO PROVIDE DATES AND TYPES OF PROCEDURES ALONG WITH MEDS TAKEN AT HOME. PT STATED MELO, CAREGIVER, WILL BE PROVIDING A MED LIST LATER TODAY. PT ALSO UNABLE TO PROVIDE MELO'S PHONE NUMBER. VSS T/O THE NIGHT. BED IN LOWEST POSITION AND CALL LIGHT WITHIN REACH.
[2023-11-12] MEDS ORDERED: Clopidogrel Bisulfate 75 MG Tab PO SCH (09:00)
[2023-11-12] MEDS ORDERED: Atorvastatin 40 MG Tab PO SCH (09:00)
[2023-11-12] MEDS ORDERED: Heparin Sodium,Porcine 5,000 UNIT/0.5 ML SDV SC SCH (09:00)
[2023-11-12] MEDS ORDERED: Aspirin 81 MG Chew PO SCH (09:00)
--- NOTE | 2023-11-12 17:26 | NUR ---
BOBBIN WINDER TENDER FOR PT'S HOME CARE CALLED AND ASKED FOR STAFF TO NOTIFY CAREGIVERS WHEN PT IS TO BE DISCHARGED IN ORDER TO SETUP TRANSPORT, .
--- NOTE | 2023-11-12 17:29 | NUR ---
SHIFT SUMMARY PT A/OX4, SOMETIMES HAS DIFFICULTY REMEMBERING HEALTH HISTORY. PT ABLE TO EXPRESS NEEDS AND CALLS APPROPIATE. VSS THROUGHOUT SHIFT WITH O2 SATS IN THE 90'S ON RA. NO REPORT OF CHEST PAIN/PRESSURE. NO REPORT OF SOB/DYSPNEA. PT ENCOURAGED TO BE UP TO CHAIR, PT STATED THAT HE IS "NOT READY YET", WILL CONTINUE TO ENCOURAGE. HERNANDEZ REMAINED IN PLACE DRAINING TO GRAVITY, YELLOW URINE NOTED. PT ENORSED DISCOMFORT OF LATERAL RIGHT CALF, APPARENT STAPLE PRESENT, MD AWARE. THIS RN SENT OFF MEDICAL RECORDS REQUEST TO AKASH OF PREVIOUS PROCEDURES ORDERED. REDDENED AREA OUTLINED WITH MARKER. LEG PAIN MANAGED PER EMAR.
--- NOTE | 2023-11-12 23:27 | NUR ---
PT COMPLAINING OF INSOMNIA. RN PHONED NOC RESIDENT. MD TO INPUT ORDERS.
[2023-11-12] MEDS ORDERED: Melatonin 3 MG Tab PO PRN (23:35)
[2023-11-13 03:31] VITALS: BP 111/58
[2023-11-13 04:02] LABS: BASOPHILS ABSOLUTE AUTO 0.01 K/mm3 (0.00-0.23); BASOPHILS PERCENT AUTO 0 % (0-2); EOSINOPHILS ABSOLUTE AUTO 0.12 K/mm3 (0.00-0.68); EOSINOPHILS PERCENT AUTO 1 % (0-6); Hematocrit 39.2 % (37.0-53.0); Hemoglobin 13.4 g/dL (13.5-17.5); IMMATURE GRAN ABSOLUTE AUTO 0.03 K/mm3 (0.00-0.10); IMMATURE GRAN PERCENT AUTO 0 % (0-1); LYMPHOCYTES ABSOLUTE AUTO 1.21 K/mm3 (0.84-5.20); LYMPHOCYTES PERCENT AUTO 14 % (21-46); MONOCYTES ABSOLUTE AUTO 0.77 K/mm3 (0.16-1.47); MONOCYTES PERCENT AUTO 9 % (4-13); Mean Corpuscular HGB 27.9 pg (26.0-34.0); Mean Corpuscular HGB Conc 34.2 g/dL (31.5-36.5); Mean Corpuscular Volume 82 fL (80-100); Mean Platelet Volume 10.8 fL (9.1-12.4); NEUTROPHILS ABSOLUTE AUTO 6.43 K/mm3 (1.96-9.15); NEUTROPHILS PERCENT AUTO 75 % (41-73); Platelet Count 172 K/mm3 (150-400); RDW Coefficient Variation 18.1 % (11.7-14.2); RDW Standard Deviation 54.1 fL (35.1-46.3); White Blood Cell Count 8.57 K/mm3 (4.00-11.30)
[2023-11-13 04:31] LABS: Bun/Creatinine Ratio 14.2 (12.0-20.0); Calcium, Blood 8.1 mg/dL (8.5-10.1); Creatinine, Blood 0.85 mg/dL (0.60-1.20)
--- NOTE | 2023-11-13 06:04 | NUR ---
SHIFT SUMMARY VIET REMOVED FROM PT'S RIGHT LEG BY MD AT BEDSIDE AT BEGINNING OF SHIFT. PATIENT TOLERATED WELL. TREATED FOR PAIN PER ORDERS. BP SOFT AT TIMES, ASYMPTOMATIC. MAP > 65
[2023-11-13 08:00] VITALS: BP 136/62
[2023-11-13] MEDS ORDERED: Potassium Chloride 20 MEQ TabCR PO ONE (09:00)
--- NOTE | 2023-11-13 11:30 | NUR ---
ASSUMPTION OF CARE PT ALERT AND ORIENTED, CALM, OBBEYS COMMANDS, ABLE TO EXPRESS NEEDS. REDNESS/RASH OF BILATERAL UPPER THIGH/GROIN AREA, REDNESS OF LLE, AND SWELLING/REDNESS OF RLE. HE DENIES CP/PRESSURE, SBP STABLE, NSR, HR IN THE 70'S. O2 >93% ON RA, DENIES SOB AT THIS TIME. +BS, HERNANDEZ CATH IN PLACE DRAINING TO GRAVITY, YELLOW URINE. PROVIDER TO BEDSIDE TO DISCUSS PLAN OF CARE. PT STATES HE "WILL NOT STAY ANY LONGER THAN TWO MORE NIGHTS" PT WILL STAY A COUPLE MORE DAYS FOR IV ABX AND MONITORING OF RLE INFECTION. PT AGREEABLE TO PLAN. PT HAS NO QUESTIONS OR CONCERNS AT THIS TIME, WILL CONTINUE TO MONITOR PT.
[2023-11-13 16:41] VITALS: BP 132/58
--- NOTE | 2023-11-13 17:18 | NUR ---
SHIFT SUMMARY PT ALERT AND ORIENTED, COOPERATIVE TO CARE, VSS. O2 >92% ON RA, CAREGIVER STOPPED BY TO GET UPDATED, UPDATE GIVEN. NO ACUTE CHANGES T/O SHIFT. PT TO CONTINUE IV ABX FOR A FEW DAYS, AND MONITOR BLE INFECTION. WILL CONTINUE TO MONITOR PT AND REPORT TO ACQUISITION SPECIALIST RN.
[2023-11-13 19:44] VITALS: BP 145/72
[2023-11-13] MEDS ORDERED: Albuterol HFA200 ACT/6.7 GM INH INH PRN (20:50)
[2023-11-14 03:28] VITALS: BP 147/65
[2023-11-14 03:40] LABS: BASOPHILS ABSOLUTE AUTO 0.06 K/mm3 (0.00-0.23); BASOPHILS PERCENT AUTO 1 % (0-2); EOSINOPHILS ABSOLUTE AUTO 0.16 K/mm3 (0.00-0.68); EOSINOPHILS PERCENT AUTO 1 % (0-6); Hematocrit 40.9 % (37.0-53.0); Hemoglobin 13.7 g/dL (13.5-17.5); IMMATURE GRAN ABSOLUTE AUTO 0.06 K/mm3 (0.00-0.10); IMMATURE GRAN PERCENT AUTO 1 % (0-1); LYMPHOCYTES ABSOLUTE AUTO 1.41 K/mm3 (0.84-5.20); LYMPHOCYTES PERCENT AUTO 13 % (21-46); MONOCYTES ABSOLUTE AUTO 0.81 K/mm3 (0.16-1.47); MONOCYTES PERCENT AUTO 7 % (4-13); Mean Corpuscular HGB Conc 33.5 g/dL (31.5-36.5); Mean Corpuscular Volume 81 fL (80-100); Mean Platelet Volume 10.2 fL (9.1-12.4); NEUTROPHILS ABSOLUTE AUTO 8.75 K/mm3 (1.96-9.15); NEUTROPHILS PERCENT AUTO 78 % (41-73); Platelet Count 211 K/mm3 (150-400); RDW Coefficient Variation 18.2 % (11.7-14.2); RDW Standard Deviation 52.9 fL (35.1-46.3); Red Blood Cell Count 5.07 M/mm3 (4.30-5.90); White Blood Cell Count 11.25 K/mm3 (4.00-11.30)
[2023-11-14 04:23] LABS: Albumin, Blood 2.3 g/dL (3.4-5.0); Anion Gap 13 mmol/L (3-11); Blood Urea Nitrogen 9 mg/dL (8-24); Bun/Creatinine Ratio 11.3 (12.0-20.0); CO2, Blood 23 mmol/L (21-32); Calcium, Blood 8.4 mg/dL (8.5-10.1); Chloride, Blood 106 mmol/L (98-108); Glomerular Filtration Rate 98 (60-); Glucose, Blood 131 mg/dL (70-99); Magnesium, Blood 1.7 mg/dL (1.6-2.4); Potassium, Blood 3.2 mmol/L (3.5-5.5); Sodium, Blood 139 mmol/L (136-145)
--- NOTE | 2023-11-14 04:24 | NUR ---
END OF SHIFT SUMMARY: Patient with minimal sleep at night secondary to RLE pain- treated with PRN roxicodone. RLE elevated on pillows, cellulitis outlined in marker with no growth. Receiving IV ancef. Tidwell catheter present placed in ER for urinary retention. No hematuria, no discomfort. Patient is A&Ox4 but forgetful, bed alarm activated. VSS on RA, NSR on tele. Patient has gotten out of bed minimally during his stay, has been refusing activity. He has been a max assist x 2 to get OOB for any activity. Adament about returning home in the next day or two, but only has [facility] sparingly. May benefit from a PT eval though patient may not be willing to get rehab of any kind. Major risk for falls at home and repeat admission depsite education provided. + note patient's RLE cellulitis is where lawrence remained in place from a R fem pop bypass performed in July of this year + removed on 11/11 at bedside.
[2023-11-14 08:08] VITALS: BP 150/70
--- NOTE | 2023-11-14 09:00 | NUR ---
NURSE NOTE ASSUMED CARE AT 0700. THIS RN AND SHELLFISH BED WORKER OFFERED TO ASSIT PT TO RECLINER. PT DENIED THIS REQUST. WILL ATTEMPT TO GET PT TO RECLINER NURY FOR LUNCH. CALL LIGHT IN REACH.
[2023-11-14] MEDS ORDERED: Furosemide 10 MG / ML 2ML Vial IV SCH (14:00)
[2023-11-14 16:27] VITALS: BP 124/71
--- NOTE | 2023-11-14 18:47 | NUR ---
SHIFT SUMMARY PT IS A+O X4, VSS, PT UP TO CHAIR FOR DINNER TWO PERSON ASSIST WITH FWW WALKER. PT VOIDING YELLOW COLORED URINE, HAS INDWELLING HERNANDEZ CATH FOR RETENTION. PT R LEG PAINFUL THROUGHOUT SHIFT, REPOSTIONING OFFERED, AND PT MEDICATED PER EMAR FOR PAIN. PT ABLE TO MAKE NEEDS KNOWN, CALL LIGHT IN REACH. WILL CONTINUE TO MONITOR UNTIL NIGHTSHIFT RN COMES ON.
[2023-11-14 19:28] VITALS: BP 147/63
[2023-11-15] MEDS ORDERED: BREZTRI AEROS10.7 GM INH (02:47)
[2023-11-15] MEDS ORDERED: LOPE2C PO (02:48)
[2023-11-15] MEDS ORDERED: OMEP20ER PO (02:49)
[2023-11-15] MEDS ORDERED: PREGABALIN75 MG PO (02:49)
[2023-11-15] MEDS ORDERED: CYMBALTA30 M2 PO (02:51)
--- NOTE | 2023-11-15 03:18 | NUR ---
TRANSFERED TO MEDICAL 342 Sent with all belongings in no apparent distress, including cell phone and inhalers. VSS on RA. NSR on tele. Report given to KATIE Ramos.
[2023-11-15 03:35] VITALS: BP 128/65
--- NOTE | 2023-11-15 05:34 | NUR ---
SHIFT SUMMARY PT TRANSFERRED FROM PCU ENGINEERING LEADER. SEPSIS AND RIGHT LOWER EXTREMITY CELLULITIS. RECEPTIVE TO CARE ALERT AND ORIENTED TIMES 4. ABLE TO MAKE NEEDS KNOWN. HERNANDEZ CATH, ROOM AIR. PT IS ON TELE SINUS RHYTHM 70 S. BED IN LOW POSITION, CALL LIGHT WITHIN REACH, RAILS TIMES 2.
[2023-11-15 05:44] LABS: BASOPHILS ABSOLUTE AUTO 0.05 K/mm3 (0.00-0.23); BASOPHILS PERCENT AUTO 1 % (0-2); EOSINOPHILS ABSOLUTE AUTO 0.24 K/mm3 (0.00-0.68); EOSINOPHILS PERCENT AUTO 3 % (0-6); Hematocrit 38.2 % (37.0-53.0); Hemoglobin 12.7 g/dL (13.5-17.5); IMMATURE GRAN ABSOLUTE AUTO 0.14 K/mm3 (0.00-0.10); IMMATURE GRAN PERCENT AUTO 2 % (0-1); LYMPHOCYTES ABSOLUTE AUTO 1.55 K/mm3 (0.84-5.20); LYMPHOCYTES PERCENT AUTO 16 % (21-46); MONOCYTES PERCENT AUTO 7 % (4-13); Mean Corpuscular HGB 26.7 pg (26.0-34.0); Mean Corpuscular HGB Conc 33.2 g/dL (31.5-36.5); Mean Corpuscular Volume 80 fL (80-100); Mean Platelet Volume 9.8 fL (9.1-12.4); NEUTROPHILS ABSOLUTE AUTO 6.83 K/mm3 (1.96-9.15); NEUTROPHILS PERCENT AUTO 72 % (41-73); Platelet Count 271 K/mm3 (150-400); RDW Coefficient Variation 18.5 % (11.7-14.2); RDW Standard Deviation 53.6 fL (35.1-46.3); Red Blood Cell Count 4.76 M/mm3 (4.30-5.90); White Blood Cell Count 9.51 K/mm3 (4.00-11.30)
[2023-11-15 06:24] LABS: Bun/Creatinine Ratio 10.3 (12.0-20.0); Calcium, Blood 8.3 mg/dL (8.5-10.1); Creatinine, Blood 0.87 mg/dL (0.60-1.20); Potassium, Blood 3.1 mmol/L (3.5-5.5)
[2023-11-15 07:42] VITALS: BP 139/79
[2023-11-15] MEDS ORDERED: Potassium Chloride 20 MEQ TabCR PO ONE (08:00)
[2023-11-15] MEDS ORDERED: NS 250 ML IV PRN (08:10)
[2023-11-15] MEDS ORDERED: Potassium Chloride 10 Meq Tablet SA PO ONE (08:45)
--- NOTE | 2023-11-15 13:37 | NUR ---
pt laying in bed awake a/ox4, upset about someone telling his caregiver not coming to hosp, he calmed after talking with him, a/ox3-4, cooperative with care, follows commands well, complained of pain to right le, medicated for this, lungs are dim t/o, has a nonproductive dry occ cough, on r/a, hrr, tele in place running sr with bbb, see strip, right foot is swollen and red, skin is clear otherwise, piv to lac, site is clear and patent, btx4, abd flat soft and nontender, voids via thompson cath at this time for retention, skin is very red to right le, no open areas, tanya degroot, call light in reach.
[2023-11-15 15:31] VITALS: BP 125/71
[2023-11-15] MEDS ORDERED: Potassium Chloride 20 MEQ TabCR PO SCH (17:00)
--- NOTE | 2023-11-15 18:22 | NUR ---
pt resting in bed watching tv, no complaints or acute changes this shift. call light in reach.
[2023-11-15 19:10] VITALS: BP 137/67
--- NOTE | 2023-11-16 04:09 | NUR ---
SHIFT SUMMARY ADMITTED FOR RLE CELLULITIS/SEPSIS. FULL CODE. HEMATURIA REPORTED AT ADMIT, BUT IT IS RESOLVED. IV ANTIB RX ARE SCHEDULED. TELEMETRY: NSR W/BBB @ [address] FOR RETENTION. REGULAR DIET. 2 MAX ASSIST W/FWW & GB - BSC. ON RA. PLAN IS TO GO HOME W/HH WHEN STABLE FOR DC, HE WILL NEED TRANSPORTATION. NO NEW CONCERNS THIS SHIFT.
[2023-11-16 04:59] VITALS: BP 132/71
[2023-11-16 05:58] LABS: BASOPHILS ABSOLUTE AUTO 0.05 K/mm3 (0.00-0.23); BASOPHILS PERCENT AUTO 1 % (0-2); EOSINOPHILS ABSOLUTE AUTO 0.24 K/mm3 (0.00-0.68); EOSINOPHILS PERCENT AUTO 3 % (0-6); Hematocrit 38.8 % (37.0-53.0); IMMATURE GRAN ABSOLUTE AUTO 0.13 K/mm3 (0.00-0.10); IMMATURE GRAN PERCENT AUTO 2 % (0-1); LYMPHOCYTES ABSOLUTE AUTO 1.88 K/mm3 (0.84-5.20); LYMPHOCYTES PERCENT AUTO 21 % (21-46); MONOCYTES ABSOLUTE AUTO 0.68 K/mm3 (0.16-1.47); MONOCYTES PERCENT AUTO 8 % (4-13); Mean Corpuscular HGB 27.3 pg (26.0-34.0); Mean Corpuscular HGB Conc 33.5 g/dL (31.5-36.5); Mean Corpuscular Volume 81 fL (80-100); Mean Platelet Volume 9.9 fL (9.1-12.4); NEUTROPHILS ABSOLUTE AUTO 5.84 K/mm3 (1.96-9.15); NEUTROPHILS PERCENT AUTO 66 % (41-73); Platelet Count 348 K/mm3 (150-400); RDW Coefficient Variation 18.7 % (11.7-14.2); RDW Standard Deviation 55.8 fL (35.1-46.3); Red Blood Cell Count 4.77 M/mm3 (4.30-5.90); White Blood Cell Count 8.82 K/mm3 (4.00-11.30)
[2023-11-16 06:36] LABS: Bun/Creatinine Ratio 12.9 (12.0-20.0); Calcium, Blood 8.3 mg/dL (8.5-10.1); Creatinine, Blood 0.77 mg/dL (0.60-1.20); Magnesium, Blood 1.9 mg/dL (1.6-2.4); Potassium, Blood 3.6 mmol/L (3.5-5.5)
[2023-11-16 07:20] VITALS: BP 136/69
[2023-11-16 15:52] VITALS: BP 141/67
[2023-11-16 15:53] VITALS: BP 141/67
--- NOTE | 2023-11-16 18:40 | NUR ---
SHIFT [place] PT A&OX4 TODAY, ABLE TO MAKE NEEDS KNOWN, COOPERATIVE WITH PROCEDURES. HAD A DIFFICULT TIME TAKING HEPARIN SUBQ THIS MORNING BUT DID EVENTUALLY RECEIVE MEDICATION WITH TIME. WAS ABOUT TO LEAVE AMA BECAUSE PT THOUGHT WE WERE "HOLDING HIM HOSTAGE", THIS RN REPLIED "YOUR NOT BEING HELD HOSTAGE". THIS RN CONTACTED MD TO INFORM ABOUT PT DECISION AND MD PERSUADED PT TO STAY. PT WANTED TO SEE CAREGIVER "MELO" (PHONE NUMBER IN CHART AND ON WHITEBOARD). CONTACTED MELO AND SHE WOULD SEE HIM IF SHE IS ABLE TO. PT WORKED WITH OT TODAY. CALL LIGHT WITHIN REACH.
[2023-11-16 20:59] VITALS: BP 139/58
[2023-11-17] MEDS ORDERED: NS 100 ML IV ONE (00:07)
[2023-11-17 03:18] VITALS: BP 147/75
--- NOTE | 2023-11-17 06:18 | NUR ---
FOOD AND BEVERAGE CHECKER PATIENT IS A&OX4, BP SLIGHTLY ELEVATED, ON ROOM AIR, ON TELE RUNNING SINUS RHYTHM IN THE 60S WITH OCCUSIONAL PVCS.
[2023-11-17 07:40] VITALS: BP 148/80
[2023-11-17] MEDS ORDERED: OxyCODONE HCL 5 MG TAB PO PRN (10:50)
[2023-11-17] MEDS ORDERED: Furosemide 20 MG Tab PO SCH (15:00)
[2023-11-17 15:28] VITALS: BP 139/71
--- NOTE | 2023-11-17 17:51 | NUR ---
SHIFT SUMMARY PT A&0X4, GABY, ANXIOUS ABOUT BEING IN HOSPITAL. STILL TALKING ABOUT HOW HIS CAREGIVER WILL NOT SEE HIM. HE IS FRUSTRATED THAT HE IS NOT AT HOME ENJOYING HIS LIFE. TOELRATED ANBX WELL, CATHETER INTACT. BED IN LOWEST POSITION, CALL LIGHT WITHIN REACH.
[2023-11-17 19:57] VITALS: BP 127/64
[2023-11-18 03:10] VITALS: BP 132/74
--- NOTE | 2023-11-18 05:12 | NUR ---
BPM ARCHITECT PATIENT IS A&OX3-4, VITAL STABLE, ON ROOM AIR, NOT ON TELE, PATIENT SAOMETIMES PRESS THE CALL BUTTON BY MISTAKE WHEN TRYING TO CHANGE THE CHANNEL. PLAN IS FOR PATIENT TO BE D/C HOME TODAY.
[2023-11-18 08:21] VITALS: BP 131/57
[2023-11-18] MEDS ORDERED: FURO20 PO (11:17)
[2023-11-18] MEDS ORDERED: POTCHL20ER PO (11:18)
[2023-11-18] MEDS ORDERED: CEFD300 PO (11:19)
[2023-11-18] MEDS ORDERED: LACT PO (11:19)
[2023-11-18] MEDS ORDERED: PANT20 PO (11:21)
--- NOTE | 2023-11-18 18:19 | NUR ---
LATE ENTRY. PATIENT DISCHARGED TO HOME. VIA WHEEL CHAIR VAN. FIREDEPARTMENT WILL ASSIST HIM IN GETTING UP TO HIS APARTMENT. 20 STEPS. PER LARISSA WILSONBRANCH RENTAL MANAGER. PATIENTS RX WERE FAXED TO [facility]. PATIENT VERBALIZED DC INSTRUCTIONS AND WILL FOLLOW UP WITH INSTRUCTED. DAVID Simms'JOSE CARLOS PRIOR TO PATIENT LEAVING MED FLOOR. PAITENT ABLE TO VOID WITHOUT DIFFICULTY. NADN NOTED AT DISCHARGE.
== END 2023-11-18 13:00 | disposition home or self-care (01) | DRG 919 ==
LOC: ER 12:05 → PCU 18:43 → MEDS 18:43 → PCU 21:30 → MEDS 11-15 02:55 → ENPENDDIS 11-18 10:46 → MEDS 11-18 13:00
PROVIDERS: Emergency Medicine; Internal Medicine; Nurse Practitioner Acute Care; Physician Assistant; ADMIT Internal Medicine
DX: T85.79XA Infection and inflammatory reaction due to other internal prosthetic devices, implants and grafts, initial encounter (principal); A41.9 Sepsis, unspecified organism; R65.20 Severe sepsis without septic shock; L03.115 Cellulitis of right lower limb; S37.011A Minor contusion of right kidney, initial encounter; E87.1 Hypo-osmolality and hyponatremia; J44.9 Chronic obstructive pulmonary disease, unspecified; I10 Essential (primary) hypertension; F17.210 Nicotine dependence, cigarettes, uncomplicated; D69.6 Thrombocytopenia, unspecified; E78.5 Hyperlipidemia, unspecified; I73.9 Peripheral vascular disease, unspecified; E87.6 Hypokalemia; Z86.73 Personal history of transient ischemic attack (TIA), and cerebral infarction without residual deficits; I77.9 Disorder of arteries and arterioles, unspecified; R31.0 Gross hematuria; Z85.47 Personal history of malignant neoplasm of testis; Z90.79 Acquired absence of other genital organ(s); Z90.89 Acquired absence of other organs; Z98.890 Other specified postprocedural states; Z88.0 Allergy status to penicillin; Z91.018 Allergy to other foods; Z79.82 Long term (current) use of aspirin; Z79.02 Long term (current) use of antithrombotics/antiplatelets; Z79.899 Other long term (current) drug therapy; X58.XXXA Exposure to other specified factors, initial encounter; Z88.8 Allergy status to other drugs, medicaments and biological substances
CPT/HCPCS: 36415; 51702; 73590; 73701; 74176; 80048; 80053; 80069; 81001; 83605; 83735; 84145; 85025; 86140; 87040; 94640; 94664; 94760; 94762; 96361; 96365-59; 96367; 96368; 96375-59; 97161; 97165; 97530; 99284-25; A9270; J0690; J1644; J1940; J3010; J3370; J7030; J7040; J7050; J7120; Q9967

== ENCOUNTER 2024-04-17 12:08 | Inpatient (IN) | payer OTHER ==
[~2024-04-17] VITALS: Ht 175.3 cm; Wt 79.5 kg
[~2024-04-17 12:08] MED LIST changes: +BREZTRI AEROS10.7 GM INH; +CEFD300 PO; +CYMBALTA30 M2 PO; +FURO20 PO; +LOPE2C PO; +OMEP20ER PO; +PANT20 PO; +POTCHL20ER PO; +PREGABALIN75 MG PO; +VISBIOME 112.51 EACH PO
[2024-04-17] MEDS ORDERED: HYDROmorphone HCl/Pf 1MG SYR IV ONE (12:25)
[2024-04-17] MEDS ORDERED: Ondansetron HCl 2 MG / ML 2ML Vial IV ONE (12:25)
[2024-04-17 15:55] LABS: BASOPHILS ABSOLUTE AUTO 0.05 K/mm3 (0.00-0.23); BASOPHILS PERCENT AUTO 1 % (0-2); EOSINOPHILS ABSOLUTE AUTO 0.32 K/mm3 (0.00-0.68); EOSINOPHILS PERCENT AUTO 4 % (0-6); Hemoglobin 16.1 g/dL (13.5-17.5); IMMATURE GRAN ABSOLUTE AUTO 0.03 K/mm3 (0.00-0.10); IMMATURE GRAN PERCENT AUTO 0 % (0-1); LYMPHOCYTES ABSOLUTE AUTO 2.41 K/mm3 (0.84-5.20); LYMPHOCYTES PERCENT AUTO 28 % (21-46); MONOCYTES ABSOLUTE AUTO 0.57 K/mm3 (0.16-1.47); MONOCYTES PERCENT AUTO 7 % (4-13); Mean Corpuscular HGB 29.9 pg (26.0-34.0); Mean Corpuscular HGB Conc 34.3 g/dL (31.5-36.5); Mean Corpuscular Volume 87 fL (80-100); Mean Platelet Volume 9.8 fL (9.1-12.4); NEUTROPHILS ABSOLUTE AUTO 5.18 K/mm3 (1.96-9.15); NEUTROPHILS PERCENT AUTO 60 % (41-73); Platelet Count 181 K/mm3 (150-400); RDW Standard Deviation 44.7 fL (35.1-46.3); Red Blood Cell Count 5.39 M/mm3 (4.30-5.90); White Blood Cell Count 8.56 K/mm3 (4.00-11.30)
[2024-04-17 16:03] LABS: Albumin, Blood 3.4 g/dL (3.4-5.0); Albumin/Globulin Ratio 0.9 (0.8-1.8); Bilirubin, Total 0.6 mg/dL (0.1-1.0); Bun/Creatinine Ratio 16.5 (12.0-20.0); Calcium, Blood 8.8 mg/dL (8.5-10.1); Creatinine, Blood 0.85 mg/dL (0.60-1.20); Globulin, Blood 3.9 g/dL (2.2-4.0); Potassium, Blood 4.2 mmol/L (3.5-5.5); Total Protein, Blood 7.3 g/dL (6.4-8.2)
[2024-04-17] MEDS ORDERED: Dose Adjust by Pharmacy XX STA (16:11)
[2024-04-17] MEDS ORDERED: Heparin Sodium 5000 Units/ML 1ML MDV IV ONE (16:15)
[2024-04-17] MEDS ORDERED: Heparin Sodium,Porcine/0.5 NS 500 ML IV SCH (16:15)
[2024-04-17 16:29] LABS: Anti-Xa UFH, PHA Monitoring <0.10 IU/mL; International Normalized Ratio 0.96; Prothrombin Time Results 10.3 Sec (9.7-11.5)
[2024-04-17] MEDS ORDERED: Melatonin 5 MG Tablet PO PRN (20:45)
[2024-04-17] MEDS ORDERED: Ondansetron 4 MG TAB PO PRN (20:45)
[2024-04-17] MEDS ORDERED: FLU VACC TS2024-25(6MOS UP)/PF 45 MCG/0.5 ML SYRINGE IM ONE (20:45)
[2024-04-17] MEDS ORDERED: Acetaminophen 325 MG TABLET PO PRN (20:50)
[2024-04-17] MEDS ORDERED: Nicotine 7 MG PATCH TOP SCH (21:00)
[2024-04-17] MEDS ORDERED: Atorvastatin 40 MG Tab PO SCH (21:00)
[2024-04-17] MEDS ORDERED: HyDROXyzine HCl 25 MG Tab PO ONE (21:00)
[2024-04-17] MEDS ORDERED: Albuterol HFA200 ACT/6.7 GM INH INH PRN (21:35)
[2024-04-17] MEDS ORDERED: BREZTRI AEROSPHERE INH SCH (21:40)
[2024-04-17] MEDS ORDERED: AmLODIPine Besylate 5 MG Tab PO SCH (22:00)
--- NOTE | 2024-04-17 22:00 | NUR ---
PT ADMITTED TO FLOOR VIA ER BED - PT TRANSFERRED TO MEDICAL FLOOR BED. PT IS ALERT AND ORIENTED. COOL BLE. PT IS ABLE TO MOVE HIS LEGS IN BED. PT HERE FOR PAD - CONSULT IN PLACE. PT HAS AN EXTENSIVE HISTORY - SEE CT SCAN - PT HAS HISTORY OF FEM BYPASS. WILL MEDICATE PER EMAR. CALL LIGHT REVIEWED WITH PT.
[2024-04-17 22:12] VITALS: BP 152/76
[2024-04-17] MEDS ORDERED: Prozac20 MG PO (22:24)
[2024-04-17] MEDS ORDERED: PREG75 PO (22:27)
[2024-04-17] MEDS ORDERED: Norco 5-325 Ta1 EACH PO (22:29)
[2024-04-17] MEDS ORDERED: TRAM50 PO (22:31)
[2024-04-17] MEDS ORDERED: HYDROcodone 5-APAP 325 TAB PO PRN ×2 (23:15→23:30)
--- NOTE | 2024-04-17 23:20 | NUR ---
CONTACTED Priscilla TOLLIVER FOR DR. VELAZCO CONSULT - SHE REPORTED SHE WASN'T SURE WHO WAS RURAL ELECTRIFICATION ENGINEER TOMORROW - BUT SHE "WILL MAKE SURE IT GETS TO THE RIGHT PERSON" FOR TOMORROW. WILL REPORT THIS OFF TO THE ONCOMING SHIFT.
[2024-04-18] MEDS ORDERED: HYDROmorphone HCl 0.5 MG/0.5 ML SYR IV PRN (01:10)
[2024-04-18] MEDS ORDERED: Dose Adjust by Pharmacy XX STA ×3 (01:48→14:42)
--- NOTE | 2024-04-18 02:00 | NUR ---
PLACED 2L OXYGEN ON PT - PT DESATS TO 86-89% AFTER DILAUDED GIVEN. SATS 91-94% WITH 2L PLACED ON. CONTINUOUS BIOX ON.
[2024-04-18 02:12] VITALS: BP 148/76
[2024-04-18 04:35] LABS: BASOPHILS ABSOLUTE AUTO 0.06 K/mm3 (0.00-0.23); BASOPHILS PERCENT AUTO 1 % (0-2); EOSINOPHILS ABSOLUTE AUTO 0.26 K/mm3 (0.00-0.68); EOSINOPHILS PERCENT AUTO 3 % (0-6); Hematocrit 46.7 % (37.0-53.0); IMMATURE GRAN ABSOLUTE AUTO 0.04 K/mm3 (0.00-0.10); IMMATURE GRAN PERCENT AUTO 0 % (0-1); LYMPHOCYTES ABSOLUTE AUTO 2.56 K/mm3 (0.84-5.20); LYMPHOCYTES PERCENT AUTO 27 % (21-46); MONOCYTES PERCENT AUTO 6 % (4-13); Mean Corpuscular HGB Conc 34.3 g/dL (31.5-36.5); Mean Corpuscular Volume 88 fL (80-100); Mean Platelet Volume 9.8 fL (9.1-12.4); NEUTROPHILS ABSOLUTE AUTO 5.91 K/mm3 (1.96-9.15); NEUTROPHILS PERCENT AUTO 63 % (41-73); Platelet Count 192 K/mm3 (150-400); RDW Coefficient Variation 14.1 % (11.7-14.2); RDW Standard Deviation 45.1 fL (35.1-46.3); Red Blood Cell Count 5.33 M/mm3 (4.30-5.90); White Blood Cell Count 9.43 K/mm3 (4.00-11.30)
[2024-04-18 04:49] LABS: International Normalized Ratio 0.96; Prothrombin Time Results 10.3 Sec (9.7-11.5)
[2024-04-18 04:57] LABS: Albumin, Blood 3.7 g/dL (3.4-5.0); Albumin/Globulin Ratio 0.9 (0.8-1.8); Bilirubin, Total 0.9 mg/dL (0.1-1.0); Bun/Creatinine Ratio 17.2 (12.0-20.0); Calcium, Blood 8.9 mg/dL (8.5-10.1); Creatinine, Blood 0.87 mg/dL (0.60-1.20); Potassium, Blood 4.1 mmol/L (3.5-5.5); Total Protein, Blood 7.7 g/dL (6.4-8.2)
--- NOTE | 2024-04-18 05:02 | NUR ---
SHIFT SUMMARY - PT COMPLAINED OF RIGHT LEFT PAIN - MEDICATED X1 WITH OXYCODONE - WITH MINIMAL RELIEF, THEN WITH DILAUDED 2MG IV WITH GOOD RELIEF. PT'S SATS DROPPED AFTER DILAUDED GIVEN - SEE PREVIOUS NOTE. PT HAS A CONTINUOUS BIOX ON - PLACED ON 2L O2 - SATS WNL. CALL LIGHT WITHIN REACH. BED IN LOW POSITION. PT IS NPO - IR CONSULT IN PLACE.
[2024-04-18] MEDS ORDERED: Pantoprazole Sodium 20 MG Tab PO SCH (06:00)
[2024-04-18 07:36] VITALS: BP 139/77
[2024-04-18] MEDS ORDERED: Clopidogrel Bisulfate 75 MG Tab PO SCH (09:00)
[2024-04-18] MEDS ORDERED: Pregabalin 75 MG Cap PO SCH (09:00)
[2024-04-18] MEDS ORDERED: DULoxetine HCL 30 MG Cap DR PO SCH (09:00)
[2024-04-18] MEDS ORDERED: Heparin Sodium 5000 Units/ML 1ML MDV SC SCH (09:00)
[2024-04-18] MEDS ORDERED: Aspirin 81 MG TabEC PO SCH (09:00)
--- NOTE | 2024-04-18 17:24 | NUR ---
RN SPOKE WITH INTERVENTIONAL RADIOLOGY STAFF, [facility], THIS MORNING ABOUT THIS PATIENT AND ASKED IF THEY RECIEVED THE CONSULT. [facility] ASSURED THIS RN THAT THE PATIENT'S CONSULT HAD BEEN RECIEVED BY THEIR OFFICE. THIS RN HAD NOT HEARD FROM DR. VELAZCO OR INTERVENTIONAL RADIOLOGY STAFF SINCE THEN REGARDING THIS PATIENT SO RN CALLED AGAIN REGARDING THIS PATIENT AND WAS INFORMED BY THE FOCUSING MACHINE OPERATOR THAT THE PATIENT IS NOT ON THE LIST FOR TODAY AND THIS IS THE FIRST SHE HAS HEARD ABOUT THIS PATIENT TODAY. SHE SAID SHE WOULD HAVE DR. VELAZCO COME UP TO SEE THE PATIENT THIS EVENING BUT THAT SURGERY IS NOT LIKELY. INSPECTOR FINAL ASSEMBLY CONVEYOR LINE NOTIFIED
[2024-04-18] MEDS ORDERED: AMLODIPINE BESY10 MG PO (17:25)
[2024-04-18] MEDS ORDERED: VARENICLINE TART1 M2 PO (17:30)
--- NOTE | 2024-04-18 18:20 | NUR ---
PATIENT IS ALERT AND ORIENTED AND COOPERATIVE WITH CARE. ON 2L IA NC. CONT. PULSE OX IN PLACE. PATIENT BEDBOUND AT BASELINE. PATIENT CAN PULL HIMSELF UP IN BED AND TURNS WELL. HERNANDEZ PLACED TODAY. WAITING FOR DR. VELAZCO TO SEE TH PATIENT THIS EVENING. DIET ORDERED BUT WILL HOLD UNTIL THE DR. ASSESS THE PATIENT. PLAN FOR NPO AFTER MIDNIGHT AT THIS TIME. RLE IS COLD AND THE PURPLE DISCOLORATION HAS INCREASED THROUGHOUT THE SHIFT. NO POPLITEAL OR DORSALIS PEDIS PULSE IN RLE. HEPARIN GTT. MEDICATED FOR PAIN. WILL CONTINUE TO MONITOR
[2024-04-18 19:36] VITALS: BP 147/77
[2024-04-19 03:05] VITALS: BP 137/80
[2024-04-19] MEDS ORDERED: HYDROmorphone HCl 0.5 MG/0.5 ML SYR IV ONE (03:25)
[2024-04-19 05:14] LABS: BASOPHILS ABSOLUTE AUTO 0.04 K/mm3 (0.00-0.23); BASOPHILS PERCENT AUTO 1 % (0-2); EOSINOPHILS ABSOLUTE AUTO 0.17 K/mm3 (0.00-0.68); EOSINOPHILS PERCENT AUTO 2 % (0-6); Hematocrit 48.4 % (37.0-53.0); IMMATURE GRAN ABSOLUTE AUTO 0.02 K/mm3 (0.00-0.10); IMMATURE GRAN PERCENT AUTO 0 % (0-1); LYMPHOCYTES ABSOLUTE AUTO 1.71 K/mm3 (0.84-5.20); LYMPHOCYTES PERCENT AUTO 21 % (21-46); MONOCYTES ABSOLUTE AUTO 0.51 K/mm3 (0.16-1.47); MONOCYTES PERCENT AUTO 6 % (4-13); Mean Corpuscular HGB 29.4 pg (26.0-34.0); Mean Corpuscular HGB Conc 33.1 g/dL (31.5-36.5); Mean Corpuscular Volume 89 fL (80-100); Mean Platelet Volume 9.5 fL (9.1-12.4); NEUTROPHILS PERCENT AUTO 71 % (41-73); Platelet Count 198 K/mm3 (150-400); RDW Coefficient Variation 14.2 % (11.7-14.2); RDW Standard Deviation 45.7 fL (35.1-46.3); Red Blood Cell Count 5.44 M/mm3 (4.30-5.90); White Blood Cell Count 8.35 K/mm3 (4.00-11.30)
[2024-04-19 05:35] LABS: Bun/Creatinine Ratio 18.7 (12.0-20.0); Calcium, Blood 8.6 mg/dL (8.5-10.1); Creatinine, Blood 0.86 mg/dL (0.60-1.20)
--- NOTE | 2024-04-19 05:59 | NUR ---
SHIFT SUMMARY PT IS PCU TRANSFER. ADMITTED WITH TOXIC METABOLIC ENCEPHALOPATHY. PT ALERT AND ORIENTED TIMES 4. PT IS FULL CODE, HAS TELE, SINUS RHYTHM. PT APPEARED TP SLEEP THROUGH THE NIGHT BED IN LOW POSITION, RAILS TIMES TWO, CALL LIGHT WITHIN REACH.
[2024-04-19] MEDS ORDERED: Clarify Drug Order XX ONE (06:50)
[2024-04-19 07:36] VITALS: BP 138/79
[2024-04-19] MEDS ORDERED: Albuterol 2.5 MG/3 ML VIAL INH PRN (08:05)
[2024-04-19] MEDS ORDERED: Mometasone Furoate Inhaler 220 mcg 14 ACT INH SCH (08:05)
[2024-04-19] MEDS ORDERED: HYDROcodone 5-APAP 325 TAB PO PRN (11:40)
[2024-04-19 16:42] VITALS: BP 138/71
--- NOTE | 2024-04-19 18:50 | NUR ---
[facility] CALLED ME THIS AFTERNOON SAYING DR. VELAZCO WOULD NOT BE TAKING PATIENT DOWN FOR REVASC PROCEDURE AND HE CAN GO AHEAD AND EAT. WILL PASS ON CASE TO DR. RIVAS TOMORROW. PATIENTS RIGHT FOOT IS DISCOLORED/PURPLISH/COLD TO TOUCH/PULSE NOT PALPABLE. PAIN MANGEMENT WITH NORCO, WAS INCREASED TO TWO TABLETS Q4. HEPARIN GTT INFUSING.
[2024-04-19 19:23] VITALS: BP 131/64
[2024-04-20 02:31] VITALS: BP 147/66
[2024-04-20] MEDS ORDERED: HYDROmorphone HCl/Pf 1MG SYR IV PRN (03:00)
--- NOTE | 2024-04-20 04:31 | NUR ---
SHIFT SUMMARY PT ALERT AND ORIENTED TIMES 4. PT ADMITTED FOR LIMB ISCHEMIA. CT SHOWS SEVERE OCCLUSION OF ARTERIES. PT STARTED ON HEPARIN DRIP. PT IS ON 3L O2 AND HAD HERNANDEZ PLACED. PT IS RECEPTIVE TO CARE. PT STATES IN SEVERE PAIN AND NEEDED MORE PAIN MEDICATION. ORDER OBTAINED FOR DILAUDID 1MG IV Q4. 45MINLATER REQUESTING MORE DILAUDID, HE IS STILL IN PAIN. PT ABLE TO MAKE NEEDS KNOWN TO STAFF. CALL LIGHT WITHIN REACH, RAILS TIMES 2, BED IN LOW POSITION.
[2024-04-20 04:49] LABS: BASOPHILS ABSOLUTE AUTO 0.04 K/mm3 (0.00-0.23); BASOPHILS PERCENT AUTO 1 % (0-2); EOSINOPHILS ABSOLUTE AUTO 0.22 K/mm3 (0.00-0.68); EOSINOPHILS PERCENT AUTO 3 % (0-6); Hematocrit 45.1 % (37.0-53.0); Hemoglobin 15.3 g/dL (13.5-17.5); IMMATURE GRAN ABSOLUTE AUTO 0.03 K/mm3 (0.00-0.10); IMMATURE GRAN PERCENT AUTO 0 % (0-1); LYMPHOCYTES ABSOLUTE AUTO 2.15 K/mm3 (0.84-5.20); LYMPHOCYTES PERCENT AUTO 25 % (21-46); MONOCYTES ABSOLUTE AUTO 0.62 K/mm3 (0.16-1.47); MONOCYTES PERCENT AUTO 7 % (4-13); Mean Corpuscular HGB 29.8 pg (26.0-34.0); Mean Corpuscular HGB Conc 33.9 g/dL (31.5-36.5); Mean Corpuscular Volume 88 fL (80-100); Mean Platelet Volume 9.6 fL (9.1-12.4); NEUTROPHILS ABSOLUTE AUTO 5.59 K/mm3 (1.96-9.15); NEUTROPHILS PERCENT AUTO 65 % (41-73); Platelet Count 201 K/mm3 (150-400); RDW Coefficient Variation 13.9 % (11.7-14.2); RDW Standard Deviation 44.6 fL (35.1-46.3); Red Blood Cell Count 5.13 M/mm3 (4.30-5.90); White Blood Cell Count 8.65 K/mm3 (4.00-11.30)
[2024-04-20 05:14] LABS: Bun/Creatinine Ratio 22.5 (12.0-20.0); Calcium, Blood 8.8 mg/dL (8.5-10.1); Creatinine, Blood 0.8 mg/dL (0.60-1.20); Potassium, Blood 3.8 mmol/L (3.5-5.5)
[2024-04-20] MEDS ORDERED: Clarify Drug Order XX ONE (06:30)
[2024-04-20 07:37] VITALS: BP 153/68
[2024-04-20 16:46] VITALS: BP 154/77
--- NOTE | 2024-04-20 17:23 | NUR ---
SPOKE WITH JOHNATHON @ [facility] TRANSFER CENTER: [facility] VASCULAR SURGEON IS UNABLE TO ACCOMMODATE PATIENT IN THEIR SCHEDULE. THEY WILL SEND REFERRAL BACK TO [facility]. PRIMARY RN, MAY, NOTIFIED.
--- NOTE | 2024-04-20 18:21 | NUR ---
SUMMARY PATIENT WAS NPO PENDING REVAC WITH DR. RIVAS CALLED HEART CENTER FOR FOLLOW UP, DR. RIVAS HAD REVIEWED PATIENTS IMAGING AND IS NOT GOING TO INTERVENE. DR. RIVAS CALLED TO UPDATE DR. MATTHEW, DR. MATTHEW CAME TO SPEAK WITH PATIENT, AND HAD US SEND PATIENT IMAGING TO [facility]. HAD SPOKEN TO DUNG AT [facility] AND STATED THEIR VASCULAR SURGEON REVIEWED IMAGING AND WILL NOT ACCEPT PATIENT. PENDING [facility] RESPONSE. PATIENT PAIN MANAGED WITH NORCO TABLETS AND IV DILAUDID. DIET CONTINUED.
[2024-04-20 20:50] VITALS: BP 142/75
[2024-04-21 05:06] LABS: Hematocrit 46.3 % (37.0-53.0); Hemoglobin 15.5 g/dL (13.5-17.5); Mean Platelet Volume 9.9 fL (9.1-12.4); Platelet Count 223 K/mm3 (150-400)
[2024-04-21 05:22] VITALS: BP 151/75
[2024-04-21] MEDS ORDERED: Dose Adjust by Pharmacy XX STA (05:36)
--- NOTE | 2024-04-21 06:29 | NUR ---
SHIFT SUMMARY PT ALERT AND ORIENTED TIMES 4. PT ADMITTED FOR LIMB ISCHEMIA. CT SHOWS SEVERE OCCLUSION OF ARTERIES. PT STARTED ON HEPARIN DRIP. PT IS ON 3L O2 AND HAD HERNANDEZ PLACED. PT IS RECEPTIVE TO CARE. PT APPEARED TO SLEEP A MAJORITY OF THE NIGHT WITH HEAD AT THE FOOT OF BED. PT ABLE TO MAKE NEEDS KNOWN TO STAFF. PT RECEPTIVE TO CARE. CALL LIGHT WITHIN REACH, RAILS TIMES 2, BED IN LOW POSITION.
[2024-04-21 07:30] VITALS: BP 152/80
[2024-04-21] MEDS ORDERED: HYDROmorphone HCl/Pf 1MG SYR IV PRN (12:15)
[2024-04-21] MEDS ORDERED: HYDROcodone 7.5-APAP 325 TAB PO PRN (12:25)
[2024-04-21 15:55] VITALS: BP 145/72
--- NOTE | 2024-04-21 18:37 | NUR ---
SHIFT SUMMARY PT CONT LEVEL OF CARE. PT NOTED TO BE A&O X AND REMIANS BEDREST AT THIS TIME. PT STRUGGLING TO HAVE PAIN MANAGED. INCREASE TO MICHAELID AND NORCO THIS SHIFT. PT ALSO SPOKE WITH PALLATIVE CARE REGARDING OPTION FOR COMFORT CARE AND HOME ON HOSPICE. PT HAS CHOOSEN TO PRESURE TREATMENT. PT INFORMED THAT PHYSICIAN HAS CALLED AND SPOKE WITH [facility] AND THEY ARE CURRENTLY AWAITING A BED AVAILABILITY. PT ALSO INFORMED THAT PHYSICIAN AT [facility] AND REQUESTED PT TO ELEVATE HIS RLE AND APPLY WARM BLANKET TO LEG. PT REFUSED TO ALLOW THIS NURSE TO APPLY BLANKET TO LEG STATED IT HURTS TO MUCH BUT DID ALLOW ELEVATION.PT WAS EDUCATED ON ABOUT THE WARM BLANK ALLOWING CIRCULATION TO EXTREMITY BUT CONT TO REFUSE.
[2024-04-21 19:53] VITALS: BP 167/80
[2024-04-22 03:24] LABS: BASOPHILS ABSOLUTE AUTO 0.05 K/mm3 (0.00-0.23); BASOPHILS PERCENT AUTO 1 % (0-2); EOSINOPHILS ABSOLUTE AUTO 0.28 K/mm3 (0.00-0.68); EOSINOPHILS PERCENT AUTO 3 % (0-6); Hematocrit 46.6 % (37.0-53.0); Hemoglobin 15.7 g/dL (13.5-17.5); IMMATURE GRAN ABSOLUTE AUTO 0.03 K/mm3 (0.00-0.10); IMMATURE GRAN PERCENT AUTO 0 % (0-1); LYMPHOCYTES ABSOLUTE AUTO 1.87 K/mm3 (0.84-5.20); LYMPHOCYTES PERCENT AUTO 21 % (21-46); MONOCYTES ABSOLUTE AUTO 0.73 K/mm3 (0.16-1.47); MONOCYTES PERCENT AUTO 8 % (4-13); Mean Corpuscular HGB 30.1 pg (26.0-34.0); Mean Corpuscular HGB Conc 33.7 g/dL (31.5-36.5); Mean Corpuscular Volume 89 fL (80-100); Mean Platelet Volume 9.6 fL (9.1-12.4); NEUTROPHILS ABSOLUTE AUTO 5.77 K/mm3 (1.96-9.15); NEUTROPHILS PERCENT AUTO 66 % (41-73); Platelet Count 229 K/mm3 (150-400); RDW Coefficient Variation 13.8 % (11.7-14.2); RDW Standard Deviation 45.3 fL (35.1-46.3); Red Blood Cell Count 5.21 M/mm3 (4.30-5.90); White Blood Cell Count 8.73 K/mm3 (4.00-11.30)
--- NOTE | 2024-04-22 04:12 | NUR ---
SHIFT SUMMARY PATIENT HAD NO ACUTE CHANGES. ALERT ORIENTED AND BEDREST. HERNANDEZ PATENT AND DRAINING TO GRAVITY. DENIES CHEST PAIN, SOB, AND N/V. VSS/AFEBRILE. REPORTED BLE PAIN X 3 AND IV DILAUDID 1 MG GIVEN AND ALTERNATED WITH NORCO 7.5 MG X 2 TABS. ON 3L O2 NC. PIV INTACT. HEPARIN INFUSING @ 28.6 mL/HR. MELATONIN 10 MG GIVEN FOR INSOMNIA. [facility] CALLED FOR UPDATE AND REPORTS WILL CALL AGAIN ON DAY SHIFT. CALL LIGHT IN REACH. BED IN LOWEST POSITION. WILL CONTINUE TO MONITOR UNTIL DAY SHIFT NURSE ASSUMES CARE.
[2024-04-22] MEDS ORDERED: Dose Adjust by Pharmacy XX STA (04:17)
[2024-04-22 04:31] VITALS: BP 161/69
[2024-04-22 08:17] VITALS: BP 154/80
[2024-04-22] MEDS ORDERED: Sennosides 8.6 MG Tab PO PRN (12:25)
[2024-04-22] MEDS ORDERED: Polyethylene Glycol 3350 17 gm PO PRN (12:25)
[2024-04-22 13:51] VITALS: BP 154/80
[2024-04-22 15:02] VITALS: BP 129/65
--- NOTE | 2024-04-22 15:08 | NUR ---
REPORT CALLED TO KATIE ENGEL AT [facility]. MELO PT CAREGIVER NOTIFIED OF DEPARTURE TODAY.
--- NOTE | 2024-04-22 15:47 | NUR ---
DISCHARGE PT DISCHARGED TO THE CARE OF [facility] FOR TRANSPORT TO [facility]. PT SENT WITH IV RUNNING HIS HEPARIN GTT. MEDICATED WITH DILADID PRIOR TO DEPARTURE. PT CAREGIVER NOTIFIED OF DC. PARAMEDICS GIVEN A REPORT ON THE PATIENT AND BELONGINGS SENT WITH PATIENT.
== END 2024-04-22 15:47 | disposition short-term general hospital (02) | DRG 300 ==
LOC: ER 12:08 → ERHOLD 20:40 → MEDS 20:40
PROVIDERS: Emergency Medicine; Internal Medicine; Student in an Organized Health Care Education/Training Program; ADMIT Internal Medicine
DX: I70.221 Atherosclerosis of native arteries of extremities with rest pain, right leg (principal); I74.19 Embolism and thrombosis of other parts of aorta; I74.5 Embolism and thrombosis of iliac artery; I74.3 Embolism and thrombosis of arteries of the lower extremities; I77.1 Stricture of artery; J44.9 Chronic obstructive pulmonary disease, unspecified; I10 Essential (primary) hypertension; F17.210 Nicotine dependence, cigarettes, uncomplicated; G47.00 Insomnia, unspecified; F32.A Depression, unspecified; Z98.890 Other specified postprocedural states; Z87.19 Personal history of other diseases of the digestive system; Z95.828 Presence of other vascular implants and grafts; Z85.47 Personal history of malignant neoplasm of testis; Z90.79 Acquired absence of other genital organ(s); Z86.73 Personal history of transient ischemic attack (TIA), and cerebral infarction without residual deficits; Z88.0 Allergy status to penicillin; Z91.018 Allergy to other foods; Z79.899 Other long term (current) drug therapy; Z79.51 Long term (current) use of inhaled steroids; Z79.82 Long term (current) use of aspirin; Z71.6 Tobacco abuse counseling; Z28.21 Immunization not carried out because of patient refusal
CPT/HCPCS: 36415; 71275; 75635; 80048; 80053; 83880; 85014; 85018; 85025; 85049; 85520; 85610; 93005; 93010; 93926; 94640; 94664; 94760; 94762; 96365-59; 96366; 96375-59; 99285-25; A9270; J1171; J1644; J2405; J2470; Q9967